=== PATIENT | female | born 1970 | race Caucasian/White ===

== ENCOUNTER 2019-08-05 08:03 | Day surgery (SDC) | payer MEDICAID ==
[2019-08-02 12:41] LABS: BASOPHILS # (AUTO) 0.1 X10'3 (0-0.2); BASOPHILS % (AUTO) 1.3 % (0-1); EOSINOPHILS # (AUTO) 0.2 X10'3 (0-0.9); EOSINOPHILS % (AUTO) 2.5 % (0-6); LYMPHOCYTES # (AUTO) 2.1 X10'3 (1.1-4.8); LYMPHOCYTES % (AUTO) 33.8 % (21-51); MEAN CORPUSCULAR HEMOGLOBIN 31.3 PG (27.0-31.0); MEAN CORPUSCULAR HGB CONC 33.4 g/dL (33.0-36.5); MEAN CORPUSCULAR VOLUME 93.7 FL (78-98); MEAN PLATELET VOLUME 8.4 FL (7.4-10.4); MONOCYTES # (AUTO) 0.4 X10'3 (0-0.9); MONOCYTES % (AUTO) 6.9 % (2-12); NEUTROPHILS # (AUTO) 3.5 X10'3 (1.8-7.7); NEUTROPHILS % (AUTO) 55.5 % (42-75); PRE OP HEMATOCRIT 41.2 % (35.0-45.0); PRE OP HEMOGLOBIN 13.7 g/dL (12.0-16.0); PRE OP PLATELET COUNT 323 X10'3 (140-440); RED BLOOD COUNT 4.39 X10'6 (4.20-5.60); RED CELL DISTRIBUTION WIDTH 13.1 % (11.5-14.5)
[2019-08-02 12:43] LABS: CLARITY,URINE SLIGHTLY CLOUDY (Clear); COLOR,URINE STRAW (Yellow); GLUCOSE, URINE NEGATIVE (Neg); KETONES,URINE NEGATIVE (Neg); LEUKOCYTE ESTERASE ,URINE NEGATIVE (Neg); NITRITES, URINE NEGATIVE (Neg); OCCULT BLOOD,URINE NEGATIVE (Neg); PROTEIN,URINE NEGATIVE (Neg); UROBILINOGEN,URINE 0.2 E.U/dL (0.2-1.0)
[2019-08-02 12:45] LABS: UA COLLECTION TYPE NON-SPECIFIED
[2019-08-02 12:53] LABS: MUCUS STRANDS FEW /LPF (Neg); SQUAMOUS EPITHELIAL CELL,UR MODERATE /LPF (FEW); TRANSITIONAL EPI CELLS,URINE FEW /HPF
[2019-08-02 12:54] LABS: ALBUMIN 4.1 G/DL (3.4-5.0); ALBUMIN/GLOBULIN RATIO 1.1 (1.1-1.5); ALKALINE PHOSPHATASE 71 IU/L (46-116); BLOOD UREA NITROGEN 12 MG/DL (7-18); BUN/CREATININE RATIO 19.7 (6.6-38.0); CALCIUM 8.9 MG/DL (8.5-10.1); CHLORIDE 105 MMOL/L (99-107); CREATININE 0.61 MG/DL (0.40-0.90); PRE OP ALT 23 U/L (30-65); PRE OP ANION GAP 6 (8-16); PRE OP AST 23 U/L (10-37); PRE OP BILIRUB, TOTAL 0.5 MG/DL (0.0-1.0); PRE OP GLUCOSE 92 MG/DL (70-104); PRE OP SODIUM 140 MMOL/L (135-145); TOTAL CARBON DIOXIDE 28.9 MMOL/L (24-32); TOTAL PROTEIN 7.7 G/DL (6.4-8.2); eGFR > 90 ML/MIN
[2019-08-02 12:54] LABS: BACTERIA,URINE 3+ /HPF (Neg); RBC,URINE 0-2 /HPF (0-2); WBC,URINE 0-4 /HPF (0-4)
[2019-08-02 13:02] LABS: HCG SERUM QL NEGATIVE
[2019-08-05] VITALS (12 sets, daily range): BP systolic 111–121; BP diastolic 73–79
[~2019-08-05] VITALS: Ht 165.1 cm; Wt 68.0 kg
[~2019-08-05 08:03] MED LIST: BUPR300T53 PO; LORA-268 PO; ZOLP5TAB2 PO; ceFOXitin 2 GM ADDvantage bag 100 ML IV ONE; famotidine 20mg tablet PO ONE; ringers solution, lacted 1,000 ML IV SCH
[2019-08-05] MEDS ORDERED: BUPIVAcaine/PF 2.5 mg/ml (0.25%) 30ml vial ONE (08:38)
[2019-08-05] MEDS ORDERED: fentaNYL/PF 50MCG/1 ML 2ML syringe ONE (09:41)
[2019-08-05] MEDS ORDERED: propofol inj 20 ML IV ONE (09:41)
[2019-08-05] MEDS ORDERED: midazolam 2 mg/2 ml injection ONE (09:41)
[2019-08-05] MEDS ORDERED: rocuronium 10mg/ml inj IV ONE (09:41)
[2019-08-05] MEDS ORDERED: dexamethasone sod phosphate 4mg/ml inj. ONE (10:05)
[2019-08-05] MEDS ORDERED: ringers solution, lacted 1,000 ML IV SCH (10:54)
[2019-08-05] MEDS ORDERED: meperidine/PF 25mg/ml syringe IV PRN ×2 (10:55)
[2019-08-05] MEDS ORDERED: ondansetron/PF 4mg/2ml inj IV PRN (10:55)
[2019-08-05] MEDS ORDERED: proCHLORperazine 10 MG/2 ml inj IV PRN (10:55)
[2019-08-05] MEDS ORDERED: morphine 4 MG/ML inj SYRINge IV PRN (10:55)
[2019-08-05] MEDS ORDERED: morphine 2 MG/ML inj. syringe IV PRN (10:55)
[2019-08-05] MEDS ORDERED: ondansetron/PF 4mg/2ml inj ONE (11:45)
[2019-08-05] MEDS ORDERED: fluoroscein sod 10% (100mg/ml) 5ml vial ONE (11:45)
[2019-08-05] MEDS ORDERED: acetaminophen 1,000mg/100ml IV 100 ML IV ONE (12:00)
[2019-08-05] MEDS ORDERED: glycopyrrolate 0.2mg/ml inj ONE (12:23)
[2019-08-05] MEDS ORDERED: neostigmine methylsulfate 1 MG/ML 10ml vial ONE (12:23)
--- NOTE | 2019-08-05 12:29 | NUR ---
Received from OR via , accompanied by Anesthesiologist LENORA and report given by Anesthesiolgist. ASLEEP IN NO RESP DISTRESS SKIN WARM AND DRY HOB ELEVATED ABD SOFT DSG DI, NO CO PAIN.
[2019-08-05] MEDS ORDERED: HYDROcodone/acetaminophen 10/325mg tab PO ONE (13:05)
[2019-08-05] MEDS: meperidine/PF 25mg/ml syringe IV PRN ×2 (13:20→13:29)
--- NOTE | 2019-08-05 14:39 | NUR ---
AWAKE VS WNL, ABD SOFT DSG DI, LAUREN PAD DRY PAIN DECREASING WITH PAIN MEDS. PT HAS PAIN MEDS AT HOME FROM [facility]. TOLERATES LIQUIDS, VOIDED QS BRIGHT YELLOW/TAKOTNA EXPECTED FROM MED GIVEN IN THE OR. [facility] INSTR GIVEN TO PT AND AND UNDERSTOOD. DISCH HOME.
== END 2019-08-05 14:39 | disposition home or self-care (01) ==
LOC: PAS 08:03
PROVIDERS: ATTEND Obstetrics & Gynecology Obstetrics
DX: N83.8 Other noninflammatory disorders of ovary, fallopian tube and broad ligament (principal); N83.292 Other ovarian cyst, left side; N73.6 Female pelvic peritoneal adhesions (postinfective); Z90.710 Acquired absence of both cervix and uterus; Z79.899 Other long term (current) drug therapy; F17.210 Nicotine dependence, cigarettes, uncomplicated; Z72.89 Other problems related to lifestyle; Z98.890 Other specified postprocedural states; Z90.49 Acquired absence of other specified parts of digestive tract
CPT/HCPCS: 36415; 58661; 71046; 80053; 81001; 82948; 84703; 85025; 86885; 86900; 86901; 93005; J0131; J0694; J1100; J2175; J2250; J2405; J2704; J2710; J3010; J3490; J7120; A4618; A7000

== ENCOUNTER 2024-03-01 17:02 | Emergency (ER) | payer MEDICAID ==
[~2024-03-01] VITALS: Ht 165.1 cm; Wt 75.4 kg
[~2024-03-01 17:02] MED LIST changes: -ceFOXitin 2 GM ADDvantage bag 100 ML IV ONE; -famotidine 20mg tablet PO ONE; -ringers solution, lacted 1,000 ML IV SCH
[2024-03-01 18:13] LABS: BILIRUBIN,URINE NEGATIVE (Neg); CLARITY,URINE CLOUDY (Clear); COLOR,URINE YELLOW (Yellow); GLUCOSE, URINE NEGATIVE (Neg); KETONES,URINE TRACE mg/dl (Neg); LEUKOCYTE ESTERASE ,URINE SMALL (Neg); OCCULT BLOOD,URINE LARGE (Neg); PROTEIN,URINE TRACE mg/dl (Neg); UROBILINOGEN,URINE 0.2 E.U/dL (0.2-1.0)
[2024-03-01 18:17] LABS: URINE HCG NEGATIVE (NEG)
[2024-03-01 18:20] LABS: UA COLLECTION TYPE CLN CATCH MIDSTREAM
[2024-03-01 18:21] LABS: NITRITES, URINE NEGATIVE (Neg); SQUAMOUS EPITHELIAL CELL,UR FEW /LPF (FEW); WBC,URINE TNTC /HPF (0-4)
[2024-03-01 18:22] LABS: BACTERIA,URINE 1+ /HPF (Neg); RBC,URINE TNTC /HPF (0-2); TRANSITIONAL EPI CELLS,URINE FEW /HPF; YEAST FEW /HPF (NEGATIVE)
[2024-03-01] MEDS ORDERED: PHEN-716 PO (19:33)
[2024-03-01] MEDS ORDERED: CEPH-585 PO (19:33)
[2024-03-01] MEDS: phenazopyridine 100mg tablet PO ONE (19:44)
[2024-03-01] MEDS: CefTRIAXone 1000mg IM Kit (w/lidocaine diluent) IM ONE (19:45)
[2024-03-01 19:50] VITALS: BP 124/90; PULSE 62; RESP 16; TEMP 98.9; O2SAT 98
== END 2024-03-01 19:52 | disposition home or self-care (01) ==
LOC: ER 17:03
DX: R33.9 Retention of urine, unspecified (principal); Z79.899 Other long term (current) drug therapy
CPT/HCPCS: 81001; 81025; 87088; 96372; 99283; J0696